=== PATIENT | female | born 1960 | race African-American/Black ===

== ENCOUNTER 2018-01-14 06:22 | Day surgery (SDC) | payer OTHER ==
[2018-01-13 08:48] VITALS: BMI 29.9
[2018-01-14] MEDS ORDERED: MIDAZOLAM HCL 2 MG/2 ML SINGLE DOSE VIAL ONE (07:49)
[2018-01-14] MEDS ORDERED: PROPOFOL 20 ML ONE ×2 (07:49)
[2018-01-14] MEDS ORDERED: DEXAMETHASONE SOD PHOSPHATE 4 MG/1 ML VIAL ONE (07:49)
[2018-01-14] MEDS ORDERED: methylPREDNISolone ACET (DEPO) 40 MG/1 ML VIAL ONE (07:54)
[2018-01-14] MEDS ORDERED: LIDOCAINE HCL 1%, 10 MG/ML (20ML VIAL) ONE (07:56)
[2018-01-14] MEDS ORDERED: BUPIVACAINE HCL/PF 0.5% (5MG/ML) 10 ML VIAL ONE (07:57)
[2018-01-14] MEDS ORDERED: BETAMET ACET/BETAMET NA PH 30 MG/5 ML VIAL ONE (07:57)
[2018-01-14] MEDS ORDERED: BUPIVACAINE HCL/PF 0.25% (2.5MG/ML) 10 ML VIAL ONE (07:59)
[2018-01-14] MEDS ORDERED: BETAMET ACET/BETAMET NA PH 30 MG/5 ML VIAL IJ ONE (08:29)
[2018-01-14] MEDS ORDERED: LIDOCAINE HCL 1%, 10 MG/ML (50 mL VIAL) IJ ONE (08:29)
[2018-01-14] MEDS ORDERED: BUPIVACAINE HCL/PF 0.25% (2.5MG/ML) 10 ML VIAL IJ ONE (08:29)
[2018-01-14] MEDS ORDERED: IOHEXOL 180 MG/1 ML ML IJ ONE (08:29)
[2018-01-14 12:05] VITALS: PULSE 78
[2018-01-14 12:13] VITALS: BP 120/70; TEMP 97.8
--- NOTE | 2018-01-14 15:28 | PROC ---
Procedure Note Procedure: Date of service:01/14/2018 Preoperative Diagnosis: Low back pain and lumbar radiculopathy on Left Postoperative Diagnosis: Same Procedure Performed: Lumbar Epidural Steroid Injection (LESI) on Left L4-5 with dye under Fluoroscopy Anesthesia: Local / MAC Anesthesiologist: Procedure: I discussed with the patient in detail about the risks, benefits, and alternatives to treatment not only limited to infection, headache, numbness , weakness, and injury to nerves, blood vessels and muscles. The patient understood, agreed and signed the written consent. The patient was placed in the prone position with the head, abdomen and legs supported with the pillows. The lumbosacral area was prepped and draped with Betadine times three in a sterile fashion. Lumbar vertebrae were identified under the C-arm. At L4-5 level on the Left side, 3 ml of 1 % Lidocaine was infiltrated into the skin and subcutaneous tissue. A 3 inch, #20 gauge Tuohy needle was advanced to the epidural space with loss of resistance technique under fluoroscopic guidance. Aspiration was negative for cerebrospinal fluid and blood. 2ml of Omnipaque ( radio-opaque dye) was injected to confirm the tip of the needle into epidural space and spread of dye. There was no CSF or vascular spread. The spread of dye was noted cranially and caudally on epidurogram. Aspiration was done again which was negative. A solution of 2.5 ml of Celestone/Dexamethasone, 2 ml of 0.25% Marcaine and 2 ml of preservative-free Normal Saline and a total of 5 ml was injected slowly. While Tuohy needle was withdrawn 2.0 ml of 1 % Lidocaine was infiltrated. Bleeding was checked. Betadine was wiped off. A sterile bandage was placed. The patient tolerated the procedure well. There were no immediate complications. The patient was transferred to the recovery room. The patient was observed for some time and discharged as per ASU criteria. The patient was told to apply ice at the injection site. Follow up appointment was given and also call my office at [phone]. If there is any problem, call my office or report to Emergency Room. Sergey Hernandez M.D.
== END 2018-01-14 11:00 | disposition home or self-care (01) ==
LOC: JASU-SURG 06:22
PROVIDERS: ATTEND Physical Medicine & Rehabilitation
PROC: 3E0R33Z Introduction of Anti-inflammatory into Spinal Canal, Percutaneous Approach (ICD-10-PCS; 2018-01-14)
PROC: B01BYZZ Fluoroscopy of Spinal Cord using Other Contrast (ICD-10-PCS; 2018-01-14)
PROC: 3E0R3BZ Introduction of Anesthetic Agent into Spinal Canal, Percutaneous Approach (ICD-10-PCS; principal; 2018-01-14 08:00)
DX: M54.16 Radiculopathy, lumbar region (principal); M54.5 Low back pain
CPT/HCPCS: 76000-TC-FY; 82962

== ENCOUNTER 2019-01-19 17:29 | Emergency (ER) | payer OTHER ==
[2019-01-19 17:41] VITALS: BP 161/71; PULSE 74; TEMP 98.3; BMI 31.4
[2019-01-19] MEDS ORDERED: CYCLOBENZAPRINE HCL 10 MG TABLET (FP) PO ONE (18:17)
[2019-01-19] MEDS ORDERED: CYCLOBENZAPRINE HCL 10 MG TABLET (FP) ONE (18:21)
--- NOTE | 2019-01-19 18:24 | PDOC ---
History of Present Illness - General Chief Complaint: Pain, Acute Stated Complaint: PAIN IN RIGHT LEG Time Seen by Provider: 01/19/19 18:04 History Source: Patient Exam Limitations: Clinical Condition - History of Present Illness Initial Comments: 01/19/19 18:28 Patient with no significant past medical history present with complaint of pain to right lateral thigh area which started last night and improve with Motrin and hot compresses but came back again this afternoon. Patient reported cramping in thigh area with pain to lateral thigh area which is worse with ambulation. Denies trauma or injury to hip or thigh. Denies any other symptoms Timing/Duration: 24 hours Past History - Past Medical History Allergies/Adverse Reactions: Allergies Allergy/AdvReac Type Severity Reaction Status Date / Time No Known Drug Allergies Allergy Verified 01/19/19 17:42 Home Medications: Ambulatory Orders Amlodipine Besylate [Norvasc -] 10 mg PO DAILY 05/01/12 Aspirin Coated [Ecotrin -] 81 mg PO DAILY 05/01/12 Metoprolol Succinate [Toprol XL -] 100 mg PO DAILY 05/01/12 Sitagliptin Phos/Metformin HCl [Janumet 50-1,000 mg Tablet] 1 each PO BID Montelukast Na [Singulair -] 10 mg PO HS PRN 06/01/15 Meloxicam [Mobic] 7.5 mg PO BID 01/13/18 Ibuprofen 800 mg PO Q8H PRN #12 tablet 01/19/19 Methocarbamol [Robaxin -] 500 mg PO BID PRN #14 tablet 01/19/19 Anemia: No Asthma: No Cancer: No Cardiac Disorders: Yes (PVC'S) CVA: No COPD: No CHF: No Dementia: No Diabetes: Yes GI Disorders: Yes (GERD) Disorders: No HTN: Yes Hypercholesterolemia: No Liver Disease: No Seizures: No Thyroid Disease: No - Surgical History Abdominal Surgery: Yes (tubal ligation, ablasion) Appendectomy: No Cardiac Surgery: No Cholecystectomy: No Lung Surgery: No Neurologic Surgery: No Orthopedic Surgery: Yes (KNEE ARTHROSCOPY, LEFT) - Immunization History Immunization Up to Date: Yes - Suicide/Smoking/Psychosocial Hx Smoking Status: No Smoking History: Never smoked Have you smoked in the past 12 months: No Number of Cigarettes Smoked Daily: 0 Hx Alcohol Use: No Drug/Substance Use Hx: No Substance Use Type: None Hx Substance Use Treatment: No Review of Systems - Review of Systems Able to Perform ROS?: Yes Is the patient limited Citizen Of [place] proficient: No Constitutional: No: Weakness HEENTM: No: Symptoms Reported Respiratory: No: Symptoms reported Cardiac (ROS): No: Symptoms Reported ABD/GI: No: Symptoms Reported Musculoskeletal: Yes: See HPI, Muscle Pain (lateral thigh area). No: Muscle Weakness Neurological: No: Numbness, Paresthesia, Tingling All Other Systems: Reviewed and Negative *Physical Exam - Vital Signs Last Vital Signs Temp Pulse Resp BP Pulse Ox 98.3 F 74 16 161/71 98 01/19/19 17:38 01/19/19 17:38 01/19/19 17:38 01/19/19 17:38 01/19/19 17:38 - Physical Exam Comments: 01/19/19 18:30 GENERAL: Well developed, well nourished. Awake and alert. No acute distress. CARDIOVASCULAR: Regular rate and rhythm. No murmurs, rubs, or gallops. PULMONARY: No evidence of respiratory distress. Lungs clear to auscultation bilaterally. No wheezing, rales or rhonchi. ABDOMINAL: Soft. Non-tender. Non-distended. No rebound or guarding. No organomegaly. Normoactive bowel sounds MUSCULOSKELETAL : mild tenderness over right ITB which is worse when internal eversion of left lower leg. No bony deformities .Negative straight leg test of right lower extremity. EXTREMITIES: No cyanosis. No clubbing. No edema. No calf tenderness. SKIN: Warm and dry. Normal capillary refill. No rashes. No jaundice. NEUROLOGICAL: Alert, awake, appropriate. No motor deficits in the lower extremities. Gait is normal without ataxia. PSYCHIATRIC: Cooperative. Good eye contact. Appropriate mood and affect. General Appearance: Yes: Nourished, Appropriately Dressed. No: Apparent Distress Medical Decision Making - Medical Decision Making 01/19/19 18:32 Patient with no significant past medical history present with complaint of intermittent pain to lateral aspect of right thigh area with feeling of cramping in thigh area. Exam significant for tenderness over ITB of right lower extremity which is worse with inversion of left lower leg. Symptoms likely ITB syndrome. Cyclobenzaprine 10 mg by mouth given. Patient took 800 mg Motrin prior to ED visit. Patient is stable for discharge on NSAIDs and muscle relaxer with orthopedist follow-up *DC/Admit/Observation/Transfer Diagnosis at time of Disposition: Iliotibial band tendinitis of right side - Discharge Dispostion Disposition: HOME Condition at time of disposition: Stable Decision to Admit order: No - Prescriptions Prescriptions: Ibuprofen 800 mg PO Q8H PRN #12 tablet PRN Reason: pain Methocarbamol [Robaxin -] 500 mg PO BID PRN #14 tablet PRN Reason: thigh pain - Referrals Referrals: Rohan Olsen DO [Staff Physician] - - Patient Instructions Printed Discharge Instructions: Iliotibial Band Syndrome Additional Instructions: Take prescribed medication as needed for thigh pain. Apply heat to it 2-3 times a day for 5-10 minutes as needed. Follow-up referred to orthopedics if no improvement in 3 days. - Post Discharge Activity Forms/Work/School Notes: Back to Work
== END 2019-01-19 18:27 | disposition home or self-care (01) ==
LOC: JERFT 17:29
DX: M76.31 Iliotibial band syndrome, right leg (principal); I10 Essential (primary) hypertension; E11.9 Type 2 diabetes mellitus without complications; Z79.84 Long term (current) use of oral hypoglycemic drugs; K21.9 Gastro-esophageal reflux disease without esophagitis
CPT/HCPCS: 99281-25

== ENCOUNTER 2019-10-19 17:13 | Emergency (ER) | payer OTHER ==
[2019-10-19 17:20] VITALS: TEMP 97.9; BMI 30.7
--- NOTE | 2019-10-19 17:24 | PDOC ---
Rapid Medical Evaluation Time Seen by Provider: 10/19/19 17:17 Medical Evaluation: Allergies Allergy/AdvReac Type Severity Reaction Status Date / Time No Known Drug Allergies Allergy Verified 10/19/19 17:16 10/19/19 17:19 59-year-old female with HTN and NIDDM with 3 days of left upper back/rib pain, worse today. Worse with deep breathing. No cough. No calf pain. No smoking. Some relief with Aleve. Pertinent physical exam findings: Alert, no distress. Lungs clear. Mild HTN SpO2 100% I have ordered the following: EKG Patient to proceed to FT for further evaluation. Discharge Disposition - Diagnosis Back pain - Referrals - Patient Instructions - Post Discharge Activity
--- NOTE | 2019-10-19 18:08 | PDOC ---
History of Present Illness - General Chief Complaint: Pain Stated Complaint: LT SIDE PAIN Time Seen by Provider: 10/19/19 17:17 History Source: Patient - History of Present Illness Timing/Duration: other Severity: moderate Past History - Past Medical History Allergies/Adverse Reactions: Allergies Allergy/AdvReac Type Severity Reaction Status Date / Time No Known Drug Allergies Allergy Verified 10/19/19 17:16 Home Medications: Ambulatory Orders Amlodipine Besylate [Norvasc -] 10 mg PO DAILY 05/01/12 Aspirin Coated [Ecotrin -] 81 mg PO DAILY 05/01/12 Metoprolol Succinate [Toprol XL -] 100 mg PO DAILY 05/01/12 Sitagliptin Phos/Metformin HCl [Janumet 50-1,000 mg Tablet] 1 each PO BID Montelukast Na [Singulair -] 10 mg PO HS PRN 06/01/15 Meloxicam [Mobic] 7.5 mg PO BID 01/13/18 Ibuprofen 800 mg PO Q8H PRN #12 tablet 01/19/19 Methocarbamol [Robaxin -] 500 mg PO BID PRN #14 tablet 01/19/19 Anemia: No Asthma: No Cancer: No Cardiac Disorders: Yes (PVC'S) CVA: No COPD: No CHF: No Dementia: No Diabetes: Yes GI Disorders: Yes (GERD) Disorders: No HTN: Yes Hypercholesterolemia: No Liver Disease: No Seizures: No Thyroid Disease: No - Surgical History Abdominal Surgery: Yes (tubal ligation, ablasion) Appendectomy: No Cardiac Surgery: No Cholecystectomy: No Lung Surgery: No Neurologic Surgery: No Orthopedic Surgery: Yes (KNEE ARTHROSCOPY, LEFT) - Immunization History Immunization Up to Date: Yes - Psycho Social/Smoking Cessation Hx Smoking Status: No Smoking History: Never smoked Have you smoked in the past 12 months: No Number of Cigarettes Smoked Daily: 0 Hx Alcohol Use: No Drug/Substance Use Hx: No Substance Use Type: None Hx Substance Use Treatment: No Review of Systems - Review of Systems Constitutional: No: Chills, Fever Respiratory: No: Cough, Shortness of Breath Cardiac (ROS): No: Chest Pain ABD/GI: No: Nausea, Vomiting : No: Dysuria, Flank Pain, Hematuria Musculoskeletal: Yes: Back Pain *Physical Exam - Vital Signs Last Vital Signs Temp Pulse Resp BP Pulse Ox 97.9 F 79 18 163/75 100 10/19/19 17:17 10/19/19 17:17 10/19/19 17:17 10/19/19 17:17 10/19/19 17:17 - Physical Exam General Appearance: Yes: Appropriately Dressed. No: Apparent Distress HEENT: positive: Normal Voice Neck: positive: Supple Respiratory/Chest: positive: Lungs Clear, Normal Breath Sounds. negative: Respiratory Distress Cardiovascular: positive: Regular Rate, S1, S2 Gastrointestinal/Abdominal: positive: Soft. negative: Tender Musculoskeletal: negative: CVA Tenderness, Vertebral Tenderness Integumentary: positive: Dry, Warm Neurologic: positive: Fully Oriented, Alert, Normal Mood/Affect Medical Decision Making - Medical Decision Making 10/19/19 18:01 59 yo F, h/o HTN, DM, here with L upper back pain x several days worse with deep inspiration. Denies any trauma. States she has had the same pain before and seen by her doctor but does not remember diagnosis. No shortness of breath otherwise and no chest pain or palpitations. No obvious risk factor for DVT or PE. Taking Aleve with some relief See exam Recurrent L upper back pain No trauma No resp/chest sxs Exam unremarkable CXR ordered form triage and neg -Dc any [id number] meds and follow-up with her PMD 10/19/19 18:14 Discharge - Discharge Information Problems reviewed: Yes Clinical Impression/Diagnosis: Back pain Condition: Good Disposition: HOME - Follow up/Referral Referrals: Jeffrey Irizarry MD [Primary Care Provider] - - Patient Discharge Instructions Patient Printed Discharge Instructions: Thoracic Back Pain Additional Instructions: Continue to take [id number] medication as needed and follow-up with your PMD - Post Discharge Activity
[2019-10-19 22:49] VITALS: BP 159/77; PULSE 82
== END 2019-10-19 18:45 | disposition home or self-care (01) ==
LOC: JERFT 17:13
DX: M54.6 Pain in thoracic spine (principal); I10 Essential (primary) hypertension; E11.9 Type 2 diabetes mellitus without complications; Z79.84 Long term (current) use of oral hypoglycemic drugs; K21.9 Gastro-esophageal reflux disease without esophagitis; Z86.79 Personal history of other diseases of the circulatory system; Z98.51 Tubal ligation status
CPT/HCPCS: 71046-TC-FY; 99281-25

== ENCOUNTER 2019-10-23 13:04 | Emergency (ER) | payer OTHER ==
[2019-10-23 13:08] VITALS: BP 138/76; PULSE 90; TEMP 98; BMI 30.7
--- NOTE | 2019-10-23 14:00 | PDOC ---
History of Present Illness - General Chief Complaint: Injury Stated Complaint: SLIP AND FALL Time Seen by Provider: 10/23/19 13:42 History Source: Patient - History of Present Illness Initial Comments: 10/23/19 14:12 Chief complaint: Fall Patient 59-year-old female with history of hypertension, NIDDM, hyperlipidemia who slipped on wet floor at work, falling and injuring her right hip and lower back. Patient also has history of herniated disks and is wearing lidocaine patch. Patient came in by ambulance and is now sitting in a wheelchair, has not tried to ambulate. Patient denies any head injury or any other complaints. Patient is not on any anticoagulation or antiplatelet therapy. GENERAL/CONSTITUTIONAL: No fever, weakness. dizziness HEAD, EYES, EARS, NOSE AND THROAT: No change in vision. No ear pain or discharge. No sore throat. CARDIOVASCULAR: No chest pain RESPIRATORY: No shortness of breath or cough GASTROINTESTINAL: No pain, nausea, vomiting, diarrhea or constipation GENITOURINARY: No dysuria MUSCULOSKELETAL: No neck or back pain, + right hip SKIN: No rash NEUROLOGIC: No headache, vertigo, loss of consciousness, or loss of sensation. GENERAL: The patient is awake, alert, and fully oriented, in no acute distress. HEAD: Normal with no signs of trauma. EYES: Pupils equal, round and reactive to light, sclera anicteric, conjunctiva clear. ENT: pharynx: no erythema, no exudate, uvula midline NECK: supple CHEST: clear, nontender, rr ABD: soft, nontender BACK: no tenderness or signs of injury EXTREMITIES: Mild right hip tenderness, able to lift leg from his wheelchair as if marching, no other injuries noted to the extremity, no deformity or shortening. Rest of extremities, normal range of motion, no edema. NEUROLOGICAL: Normal speech, cranial nerves II through XII grossly intact, no gross focal abnormalities, gait not tested SKIN: Warm, Dry Past History - Past Medical History Allergies/Adverse Reactions: Allergies Allergy/AdvReac Type Severity Reaction Status Date / Time No Known Drug Allergies Allergy Verified 10/23/19 13:08 Home Medications: Ambulatory Orders Amlodipine Besylate [Norvasc -] 10 mg PO DAILY 05/01/12 Aspirin Coated [Ecotrin -] 81 mg PO DAILY 05/01/12 Metoprolol Succinate [Toprol XL -] 100 mg PO DAILY 05/01/12 Sitagliptin Phos/Metformin HCl [Janumet 50-1,000 mg Tablet] 1 each PO BID Montelukast Na [Singulair -] 10 mg PO HS PRN 06/01/15 Meloxicam [Mobic] 7.5 mg PO BID 01/13/18 Ibuprofen 800 mg PO Q8H PRN #12 tablet 01/19/19 Methocarbamol [Robaxin -] 500 mg PO BID PRN #14 tablet 01/19/19 Anemia: No Asthma: No Cancer: No Cardiac Disorders: Yes (PVC'S) CVA: No COPD: No CHF: No Dementia: No Diabetes: Yes GI Disorders: Yes (GERD) Disorders: No HTN: Yes Hypercholesterolemia: No Liver Disease: No Seizures: No Thyroid Disease: No - Surgical History Abdominal Surgery: Yes (tubal ligation, ablasion) Appendectomy: No Cardiac Surgery: No Cholecystectomy: No Lung Surgery: No Neurologic Surgery: No Orthopedic Surgery: Yes (KNEE ARTHROSCOPY, LEFT) - Immunization History Immunization Up to Date: Yes - Psycho Social/Smoking Cessation Hx Smoking Status: No Smoking History: Never smoked Have you smoked in the past 12 months: No Number of Cigarettes Smoked Daily: 0 Hx Alcohol Use: No Drug/Substance Use Hx: No Substance Use Type: None Hx Substance Use Treatment: No *Physical Exam - Vital Signs Last Vital Signs Temp Pulse Resp BP Pulse Ox 98 F 90 18 138/76 98 10/23/19 13:05 10/23/19 13:05 10/23/19 13:05 10/23/19 13:05 10/23/19 13:05 Medical Decision Making - Medical Decision Making 10/23/19 14:15 59-year-old female with history of hypertension, NIDDM and hyperlipidemia with herniated disc slipped and fell at work today. Patient with right hip pain. Patient is able to move extremity, no obvious signs of fracture. Gait not tested. Patient will get x-rays of the hip, examination of the spine shows no acute issue, no spinal tenderness. Patient also asking for left hip to be x- rayed. Patient offered pain medicine would like Motrin. 10/23/19 14:49 X-rays are negative, patient is able to ambulate. Discussed issues, findings, results, applicable medications and treatments and follow-up. All these were understood and all questions were answered Discharge - Discharge Information Problems reviewed: Yes Clinical Impression/Diagnosis: Back injury Qualifiers: Encounter type: initial encounter Qualified Code(s): S39.92XA - Unspecified injury of lower back, initial encounter Hip injury Qualifiers: Encounter type: initial encounter Laterality: unspecified laterality Qualified Code(s): S79.919A - Unspecified injury of unspecified hip, initial encounter Condition: Stable Disposition: HOME - Admission No - Follow up/Referral Referrals: Enrike Rascon MD [Staff Physician] - - Patient Discharge Instructions Patient Printed Discharge Instructions: Contusion Additional Instructions: No heavy lifting or bending Apply ice to the area 20 minutes every 2 hours for the next 2 days Continue taking Motrin 600 mg every 6 hours for pain. Return to the nearest ER if numbness, weakness, severe pain, problems with urinating or having bowel movements. Call orthopedist today for an appointment for further evaluation - Post Discharge Activity Work/Back to School Note: Back to Work
[2019-10-23] MEDS ORDERED: IBUPROFEN 600 MG TABLET (FP) PO ONE ×2 (14:01→14:46)
== END 2019-10-23 14:53 | disposition home or self-care (01) ==
LOC: JERFT 13:04
DX: S39.82XA Other specified injuries of lower back, initial encounter (principal); S79.811A Other specified injuries of right hip, initial encounter; M54.5 Low back pain; M25.551 Pain in right hip; W01.0XXA Fall on same level from slipping, tripping and stumbling without subsequent striking against object, initial encounter; Y93.89 Activity, other specified; Y92.128 Other place in nursing home as the place of occurrence of the external cause; Y99.0 Civilian activity done for income or pay; I10 Essential (primary) hypertension; E11.9 Type 2 diabetes mellitus without complications; Z79.84 Long term (current) use of oral hypoglycemic drugs; E78.5 Hyperlipidemia, unspecified; K21.9 Gastro-esophageal reflux disease without esophagitis
CPT/HCPCS: 73523-TC-FY; 99281-25

== ENCOUNTER 2022-12-11 02:55 | Emergency (ER) | payer OTHER ==
[2022-12-11 03:18] VITALS: BMI 28.9
[2022-12-11 05:52] LABS: BASO % 0.5 % (0-2.0); EOS % 2.6 % (0-4.5); HEMATOCRIT 38.2 % (32.4-45.2); HEMOGLOBIN 12.9 GM/dL (10.7-15.3); LYMPH % 28.8 % (8-40); MCH 29.7 pg (25.7-33.7); MCHC 33.8 g/dl (32.0-36.0); MEAN PLT VOLUME 8.7 fl (7.5-11.1); MONO % 7.1 % (3.8-10.2); PLATELET COUNT 381 10^3/uL (134-434); RBC 4.35 M/mm3 (3.60-5.2); RDW 13.9 % (11.6-15.6); WHITE BLOOD COUNT 8.5 K/mm3 (4.0-10.0)
[2022-12-11 05:54] LABS: INR 1.09 (0.83-1.09); PROTHROMBIN TIME (PATIENT) 12.6 SEC (9.7-13.0)
[2022-12-11 05:56] LABS: ACTIVATED PTT 32.1 SECONDS (25.2-36.5)
[2022-12-11 06:09] LABS: ALBUMIN 4.3 g/dl (3.4-5.0); BLOOD UREA NITROGEN 13.9 mg/dL (7-18); CALCIUM 10.2 mg/dL (8.5-10.1); MAGNESIUM 2.1 mg/dL (1.8-2.4)
[2022-12-11 06:13] LABS: TOT PROT 8.4 g/dl (6.4-8.2)
[2022-12-11 06:37] VITALS: TEMP 98.1
[2022-12-11 09:54] VITALS: PULSE 78
[2022-12-11 12:11] VITALS: BP 113/77; RESP 17
== END 2022-12-11 12:26 | disposition home or self-care (01) ==
LOC: JER 02:55
DX: R00.2 Palpitations (principal); I10 Essential (primary) hypertension
CPT/HCPCS: 0241U-QW; 36415; 70450-TC; 70496-TC; 70498-TC; 71046-TC-FY; 80053; 83735; 84484; 85025; 85610; 85730; 93005; 93010; 99283-25; 99284-25; C1887

== ENCOUNTER 2023-04-13 18:22 | Emergency (ER) | payer OTHER ==
[2023-04-13 18:32] VITALS: BP 146/83; PULSE 80; RESP 18; TEMP 98.2; BMI 27.9
[2023-04-13] MEDS ORDERED: KETOROLAC TROMETHAMINE 30 MG/1 ML VIAL IM ONE (19:07)
[2023-04-13] MEDS ORDERED: ACETAMINOPHEN 500 MG TABLET (FP) PO ONE (19:07)
[2023-04-13] MEDS ORDERED: LIDOCAINE 5% TOPICAL PATCH TP ONE (19:07)
[2023-04-13] MEDS ORDERED: KETOROLAC TROMETHAMINE 30 MG/1 ML VIAL ONE (19:18)
[2023-04-13] MEDS ORDERED: ACETAMINOPHEN 500 MG TABLET (FP) ONE (19:18)
[2023-04-13] MEDS ORDERED: LIDOCAINE 5% TOPICAL PATCH ONE (19:19)
[2023-04-13] MEDS ORDERED: LIDOCAINE PATCH REMOVAL MC SCH (22:00)
== END 2023-04-13 19:53 | disposition home or self-care (01) ==
LOC: JER 18:22 → JERFT 18:22
PROC: 3E0233Z Introduction of Anti-inflammatory into Muscle, Percutaneous Approach (ICD-10-PCS; principal; 2023-04-13)
DX: M54.6 Pain in thoracic spine (principal)
CPT/HCPCS: 99284-25

== ENCOUNTER 2023-12-11 11:01 | Emergency (ER) | payer OTHER ==
[2023-12-11 12:07] VITALS: BP 137/78; PULSE 83; RESP 18; TEMP 98.4; BMI 28.9
[2023-12-11] MEDS ORDERED: LIDOCAINE HCL 2% JELLY 10 ML CARTRIDGE PR ONE (12:41)
== END 2023-12-11 13:24 | disposition home or self-care (01) ==
LOC: JERFT 11:01
DX: K64.9 Unspecified hemorrhoids (principal)
CPT/HCPCS: 99283-25

== ENCOUNTER 2024-02-27 04:27 | Day surgery (SDC) | payer OTHER ==
[2024-02-24 12:42] VITALS: BMI 29.1
[2024-02-27 11:48] VITALS: BP 126/71; PULSE 73; RESP 15; TEMP 97
== END 2024-02-27 11:47 | disposition home or self-care (01) ==
LOC: JASU-ENDO 04:27
PROVIDERS: ATTEND Internal Medicine Gastroenterology
PROC: 0DB78ZX Excision of Stomach, Pylorus, Via Natural or Artificial Opening Endoscopic, Diagnostic (ICD-10-PCS; 2024-02-27)
PROC: 0DB68ZX Excision of Stomach, Via Natural or Artificial Opening Endoscopic, Diagnostic (ICD-10-PCS; principal; 2024-02-27 11:15)
DX: K29.50 Unspecified chronic gastritis without bleeding (principal); K31.A11 Gastric intestinal metaplasia without dysplasia, involving the antrum; K31.7 Polyp of stomach and duodenum; I10 Essential (primary) hypertension; E11.9 Type 2 diabetes mellitus without complications; Z79.84 Long term (current) use of oral hypoglycemic drugs
CPT/HCPCS: 82962; 88305-TC; 88342-TC